=== PATIENT | female | born 1960 | race Caucasian/White ===

== ENCOUNTER 2016-10-19 11:32 | Emergency (ER) | payer MEDICARE, OTHER ==
[2016-10-19] MEDS ORDERED: Sodium Chloride 0.9% 1,000 ML IV ONE (11:42)
[2016-10-19] MEDS ORDERED: Morphine 2 MG/ML Syringe IVPUSH ONE (11:42)
[2016-10-19] MEDS ORDERED: Ondansetron 4 MG/2 ML SDV IVPUSH ONE (11:42)
--- NOTE | 2016-10-19 11:53 | EDM.PDOC ---
ED HPI GENERAL MEDICAL PROBLEM - General Chief Complaint: Chest Pain Stated Complaint: AMBULANCE Time Seen by Provider: 10/19/16 11:40 - History of Present Illness INITIAL COMMENTS - FREE TEXT/NARRATIVE: HISTORY AND PHYSICAL: History of present illness: Patient is 56-year-old white female history of hypertension who presents with a concern of chest pain she states she had no episode when she left [facility] of sharp pain that was mid scapular going to her anterior chest now feels like it is a heaviness to spin off-and-on last several day she went to chiropractor for manipulation thinking this may be muscle scalpels developed an episode of acute diaphoresis shortness of breath and worsening pain she went to a local clinic where she was given supplemental nitroglycerin 2 and aspirin she had incomplete relief paramedics were notified and she was transferred while she got nitroglycerin spray 2 in route upon arrival she had blood pressure of 84/60 initially but states her pain was down from 10 out of 10-4 out of 10. IV O2 monitor was initiated and initial EKG had diffuse ST changes in the form of ST depression and some equivocal elevation inferiorly. Review of systems: As per history of present illness and below otherwise all systems reviewed and negative. Past medical history: As per history of present illness and as reviewed below otherwise noncontributory. Surgical history: As per history of present illness and as reviewed below otherwise noncontributory. Social history: No reported history of drug or alcohol abuse. Family history: As per history of present illness and as reviewed below otherwise noncontributory. Physical exam: HEENT: Atraumatic, normocephalic, pupils reactive, negative for conjunctival pallor or scleral icterus, mucous membranes moist, throat clear, neck supple, nontender, trachea midline. Lungs: Clear to auscultation, breath sounds equal bilaterally, chest nontender. Heart: S1S2, regular, negative for clicks, rubs, or JVD. Abdomen: Soft, nondistended, nontender. Negative for masses or hepatosplenomegaly. Negative for costovertebral tenderness. Pelvis: Stable nontender. Genitourinary: Deferred. Rectal: Deferred. Extremities: Atraumatic, negative for cords or calf pain. Neurovascular unremarkable. Neuro: Awake, alert, oriented. Cranial nerves II through XII unremarkable. Cerebellum unremarkable. Motor and sensory unremarkable throughout. Exam nonfocal. Diagnostics: CBC CMP troponin PT/INR chest x-ray EKG Therapeutics: IV O2 monitor morphine sulfate 2 mg IV Zofran 4 mg IV Impression: #1 acute coronary syndrome Definitive disposition and diagnosis as appropriate pending reevaluation and review of above. Anterior Chest Pain Score (Numeric/FACES): 4 - Related Data Allergies Allergy/AdvReac Type Severity Reaction Status Date / Time No Known Allergies Allergy Verified 10/19/16 11:33 ED ROS GENERAL - Review of Systems Review Of Systems: ROS reveals no pertinent complaints other than HPI. 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 Last Recorded V/S: Last Vital Signs Temp 36.6 C 10/19/16 11:33 Pulse 101 H 10/19/16 11:33 Resp 13 10/19/16 11:33 BP 98/59 L 10/19/16 11:33 Pulse Ox 97 10/19/16 11:33 - Orders/Labs/Meds Orders: Active Orders 24 hr Category Date Time Status Sodium Chloride 0.9% [Normal Saline] 1,000 ml Med 10/19/16 11:42 Active IV .Bolus Medication Orders Sodium Chloride (Normal Saline) 1,000 mls @ 999 mls/hr IV .Bolus ONE Stop: 10/19/16 12:42 Meds: Medications Generic Name Dose Route Start Last Admin Trade Name Freq PRN Reason Stop Dose Admin Sodium Chloride 1,000 mls @ 999 mls/hr 10/19/16 11:42 Normal Saline IV 10/19/16 12:42 .Bolus ONE Discontinued Medications Generic Name Dose Route Start Last Admin Trade Name Freq PRN Reason Stop Dose Admin Morphine Sulfate 2 mg 10/19/16 11:42 Morphine IVPUSH 10/19/16 11:43 ONETIME ONE Ondansetron HCl 4 mg 10/19/16 11:42 Zofran IVPUSH 10/19/16 11:43 ONETIME ONE Departure - Departure Time of Disposition: 11:52 Disposition: DC/Tfer to Other 70 Condition: Serious Clinical Impression: Acute coronary syndrome - Discharge Information Forms: ED Department Discharge - My Orders Last 24 Hours: My Active Orders 10/19/16 11:42 Sodium Chloride 0.9% [Normal Saline] 1,000 ml IV .Bolus - Assessment/Plan Last 24 Hours: My Active Orders 10/19/16 11:42 Sodium Chloride 0.9% [Normal Saline] 1,000 ml IV .Bolus
[2016-10-19] MEDS ORDERED: Aspirin 81 MG Tab.Chew PO ONE (12:15)
[2016-10-19] MEDS ORDERED: Aspirin 81 MG Tab.Chew ONE (12:17)
--- NOTE | 2016-10-19 12:25 | CR ---
EXAMINATION: Portable chest radiograph. HISTORY: Shortness of breath. FINDINGS: The trachea is midline. The cardiomediastinal silhouette is within normal limits. No pleural effusio n or pneumothorax. Mild elevation of the right hemidiaphragm with mild right basilar atelectasis and /or infiltrate. Osseous structures appear unremarkable. IMPRESSION: Mild right basilar atelectasis and/or infiltrate.
[2016-10-19 14:43] VITALS: BP 85/60
== END 2016-10-19 12:28 | disposition other institution (70) ==
LOC: MW.ED 11:32
DX: I24.9 Acute ischemic heart disease, unspecified (principal); R06.02 Shortness of breath; R61 Generalized hyperhidrosis
CPT/HCPCS: 36415; 71010; 80053; 83880; 84484; 85025; 85610; 93005; 96361; 96374; 96375; 99285; A9270; J2270; J2405; J7040

== ENCOUNTER 2016-10-23 21:46 | Emergency (ER) | payer MEDICARE, OTHER ==
--- NOTE | 2016-10-23 22:01 | EDM.PDOC ---
ED HPI GENERAL MEDICAL PROBLEM - General Chief Complaint: Chest Pain Stated Complaint: CHEST PAIN Time Seen by Provider: 10/23/16 21:48 - History of Present Illness INITIAL COMMENTS - FREE TEXT/NARRATIVE: HISTORY AND PHYSICAL: History of present illness: Patient is 56-year-old white female with past medical history significant for presumptive Prinzmetal angina she was seen several days prior by myself and sent via [facility] to [facility] where she underwent cardiac catheterization and was told that her coronary arteries were unremarkable and was put on multiple medications for presumptive vasospasm. She presents tonight extremely anxious with recurrence of her pain she took 2 sublingual nitros with some improvement she denies nausea vomiting diaphoresis or shortness of breath Review of systems: As per history of present illness and below otherwise all systems reviewed and negative. Past medical history: As per history of present illness and as reviewed below otherwise noncontributory. Surgical history: As per history of present illness and as reviewed below otherwise noncontributory. Social history: No reported history of drug or alcohol abuse. Family history: As per history of present illness and as reviewed below otherwise noncontributory. Physical exam: HEENT: Atraumatic, normocephalic, pupils reactive, negative for conjunctival pallor or scleral icterus, mucous membranes moist, throat clear, neck supple, nontender, trachea midline. Lungs: Clear to auscultation, breath sounds equal bilaterally, chest nontender. Heart: S1S2, regular, negative for clicks, rubs, or JVD. Abdomen: Soft, nondistended, nontender. Negative for masses or hepatosplenomegaly. Negative for costovertebral tenderness. Pelvis: Stable nontender. Genitourinary: Deferred. Rectal: Deferred. Extremities: Atraumatic, negative for cords or calf pain. Neurovascular unremarkable. Neuro: Awake, alert, oriented. Cranial nerves II through XII unremarkable. Cerebellum unremarkable. Motor and sensory unremarkable throughout. Exam nonfocal. Diagnostics: CBC CMP troponin PT/INR chest x-ray EKG Therapeutics: IV O2 monitor Impression: #1 chest pain #2 anxiety Definitive disposition and diagnosis as appropriate pending reevaluation and review of above. Left Upper Chest Pain Score (Numeric/FACES): 5 - Related Data Allergies Allergy/AdvReac Type Severity Reaction Status Date / Time No Known Allergies Allergy Verified 10/19/16 11:33 Home Meds: Home Meds Aspirin 162 mg PO BRK 10/23/16 [History] Carvedilol 3.125 mg PO BID 10/23/16 [History] Clopidogrel [Plavix] 75 mg PO DAILY 10/23/16 [History] Furosemide 20 mg PO DAILY PRN 10/23/16 [History] Levothyroxine 75 mcg PO DAILY 10/23/16 [History] Nitroglycerin 0.4 mg SL DAILY PRN 10/23/16 [History] Nitroglycerin [Nitro-Dur 0.1 MG/Hr] 0.1 mg TRDERM DAILY 10/23/16 [History] Potassium Citrate [Potassium Citrate ER] 10 meq PO BID 10/23/16 [History] atorvaSTATin [Lipitor] 20 mg PO ONETIME 10/23/16 [History] Past Medical History - Past Health History Medical/Surgical History: Denies Medical/Surgical History Cardiovascular History: Reports: Hypertension Endocrine/Metabolic History: Reports: Hypothyroidism - Past Surgical History Female Surgical History: Reports: Hysterectomy Social & Family History - Family History Family Medical History: Noncontributory - Tobacco Use Smoking Status *Q: Never Smoker - Recreational Drug Use Recreational Drug Use: No ED ROS GENERAL - Review of Systems Review Of Systems: ROS reveals no pertinent complaints other than HPI. ED EXAM, GENERAL - Physical Exam Exam: See Below (See dictation) Course - Vital Signs Text/Narrative:: Lengthy discussion with patient and significant other regarding unclear etiology and review of diagnostics including serial EKGs with no dynamic and/or interval change from prior patient was offered admission here for observation and/or transfer to [facility] to primary care nurse practitioner patient declines and requests discharge home and will follow as outpatient with her primary care nurse practitioner continue current meds Last Recorded V/S: Last Vital Signs Temp 36.8 C 10/23/16 21:50 Pulse 95 10/23/16 21:50 Resp 20 10/23/16 21:50 BP 163/97 H 10/23/16 21:50 Pulse Ox 95 10/23/16 21:50 - Orders/Labs/Meds Orders: Active Orders 24 hr Category Date Time Status EKG 12 Lead [EKG Documentation Completion] [RC] STAT Care 10/23/16 22:08 Active Chest 1V Frontal [CR] Stat Exams 10/23/16 22:08 Taken Labs: Laboratory Tests 10/23/16 10/23/1617 Range/Units 22:00 22:00 22:00 WBC 6.29 (4.0-11.0) K/uL RBC 4.21 L (4.30-5.90) M/uL Hgb 12.9 (12.0-16.0) g/dL Hct 38.0 (36.0-46.0) % MCV 90.3 (80.0-98.0) fL MCH 30.6 (27.0-32.0) pg MCHC 33.9 (31.0-37.0) g/dL RDW Std Deviation 42.1 (28.0-62.0) fl RDW Coeff of Ho 13 (11.0-15.0) % Plt Count 227 (150-400) K/uL MPV 10.40 (7.40-12.00) fL Neut % (Auto) 67.6 (48.0-80.0) % Lymph % (Auto) 21.8 (16.0-40.0) % Hodgeman % (Auto) 8.4 (0.0-15.0) % Eos % (Auto) 1.9 (0.0-7.0) % Baso % (Auto) 0.3 (0.0-1.5) % Neut # (Auto) 4.3 (1.4-5.7) K/uL Lymph # (Auto) 1.4 (0.6-2.4) K/uL Hodgeman # (Auto) 0.5 (0.0-0.8) K/uL Eos # (Auto) 0.1 (0.0-0.7) K/uL Baso # (Auto) 0.0 (0.0-0.1) K/uL Nucleated RBC % 0.0 /100WBC Nucleated RBCs # 0 K/uL Sodium 142 (136-146) mmol/L Potassium 3.8 (3.5-5.1) mmol/L Chloride 105 (98-110) mmol/L Carbon Dioxide 27 (21-31) mmol/L BUN 14 (6.0-23.0) mg/dL Creatinine 0.9 (0.6-1.5) mg/dL Est Cr Clr Drug Dosing 72.08 mL/min Estimated GFR (MDRD) > 60.0 ml/min Glucose 118 H (60-110) mg/dL Calcium 9.0 (8.8-10.8) mg/dL Total Bilirubin 0.4 (0.1-1.5) mg/dL AST 14 (5-40) IU/L ALT 14 (8-54) IU/L Alkaline Phosphatase 96 (40-150) CK-MB (CK-2) 1.7 (0-6.6) ng/ml Troponin I < 0.10 (0.0-0.29) NG/ML Total Protein 6.9 (6.0-8.0) g/dL Albumin 3.7 (3.5-5.0) g/dL Globulin 3.2 (2.0-3.5) g/dL Albumin/Globulin Ratio 1.2 L (1.3-2.8) Departure - Departure Time of Disposition: 23:53 Disposition: Home, Self-Care 01 Condition: Good Clinical Impression: Chest pain - Discharge Information Forms: ED Department Discharge Additional Instructions: The following information is given to patients seen in the emergency department who are being discharged to home. This information is to outline your options for follow-up care. We provide all patients seen in our emergency department with a follow-up referral. The need for follow-up, as well as the timing and circumstances, are variable depending upon the specifics of your emergency department visit. If you don't have a primary care physician on staff, we will provide you with a referral. We always advise you to contact your personal physician following an emergency department visit to inform them of the circumstance of the visit and for follow-up with them and/or the need for any referrals to a consulting specialist. The emergency department will also refer you to a specialist when appropriate. This referral assures that you have the opportunity for followup care with a specialist. All of these measure are taken in an effort to provide you with optimal care, which includes your followup. Under all circumstances we always encourage you to contact your private physician who remains a resource for coordinating your care. When calling for followup care, please make the office aware that this follow-up is from your recent emergency room visit. If for any reason you are refused follow-up, please contact the [facility] emergency department at and asked to speak to the emergency department charge nurse. Continue current meds follow-up with cardiology ANDREINA return as needed as discussed - My Orders Last 24 Hours: My Active Orders 10/23/16 22:08 EKG 12 Lead [EKG Documentation Completion] [RC] STAT Chest 1V Frontal [CR] Stat - Assessment/Plan Last 24 Hours: My Active Orders 10/23/16 22:08 EKG 12 Lead [EKG Documentation Completion] [RC] STAT Chest 1V Frontal [CR] Stat
[2016-10-23 22:35] LABS: CHLORIDE,CL 105 mmol/L (98-110); SODIUM,NA 142 mmol/L (136-146)
[2016-10-24 02:16] VITALS: BP 137/87
--- NOTE | 2016-10-24 10:44 | CR ---
EXAM DATE: 10/23/16 PATIENT'S AGE: 56 Patient: DEBORAH HARVEY Facility: [place], [place] Site . Site : [id number] Study: XRay Chest [id number]/[id number] 10:56:48 PM Ordering Physician: Tessie Roman Final Report: INDICATION: Chest pain TECHNIQUE: Chest 1 view. COMPARISON: Basilar FINDINGS: Cardiovascular and mediastinum: Heart size and vasculature are normal in caliber and appearance. Mediastinum is within normal limits. Lungs and pleural space: Elevation right hemidiaphragm with adjacent atelectasis. No sign of infiltrate or mass. No sign of pleural effusion. No pneumothorax. Bones and soft tissues: No significant findings. IMPRESSION: No acute pulmonary or cardiac abnormalities. Stable appearance of the chest compared 10/19/2016. Dictated by Juan Goldberg MD @ 10/23/2016 11:11:51 PM Dictated by: Juan Goldberg MD @ 10/23/2016 23:11:57 (Electronic Signature) Report Signed by Proxy. [id number]
== END 2016-10-24 00:05 | disposition home or self-care (01) ==
LOC: MW.ED 21:46
DX: R07.9 Chest pain, unspecified (principal); F41.9 Anxiety disorder, unspecified; I10 Essential (primary) hypertension; E03.9 Hypothyroidism, unspecified; Z90.710 Acquired absence of both cervix and uterus; Z79.82 Long term (current) use of aspirin; Z79.899 Other long term (current) drug therapy
CPT/HCPCS: 36415; 71010; 71010-26; 80053; 82553; 84484; 85025; 93005; 99283; 99285-25